=== PATIENT | male | born 1960 | race African-American/Black ===

== ENCOUNTER 2016-10-30 09:06 | Emergency (ER) | payer MEDICAID, OTHER ==
[~2016-10-30] VITALS: Ht 182.9 cm; Wt 110.0 kg
[2016-10-30] MEDS ORDERED: GEMF600T3 PO (09:10)
[2016-10-30] MEDS ORDERED: METF500T4 PO (09:10)
[2016-10-30] MEDS ORDERED: ASPI-1159 PO (09:10)
[2016-10-30] MEDS ORDERED: LISI2.5T47 PO (09:10)
[2016-10-30] MEDS ORDERED: LIDOCAINE HCL 1% 20ML VIAL (Pyxis) INJ MC ONE (13:00)
[2016-10-30] MEDS ORDERED: BACITRACIN ZINC OINT UDPKT TOP ONE (13:00)
[2016-10-30] MEDS ORDERED: TETANUS, DIPHTHERIA, PERTUSSIS VAC/PF 0.5ML (>7YR OLD) IM ONE (13:00)
[2016-10-30 15:00] VITALS: BP 162/93
== END 2016-10-30 15:28 | disposition home or self-care (01) ==
LOC: ER 09:16
DX: S01.112A Laceration without foreign body of left eyelid and periocular area, initial encounter (principal); S05.12XA Contusion of eyeball and orbital tissues, left eye, initial encounter; G91.9 Hydrocephalus, unspecified; I10 Essential (primary) hypertension; E11.9 Type 2 diabetes mellitus without complications; Z79.84 Long term (current) use of oral hypoglycemic drugs; Z79.82 Long term (current) use of aspirin; Y92.012 Bathroom of single-family (private) house as the place of occurrence of the external cause; W01.0XXA Fall on same level from slipping, tripping and stumbling without subsequent striking against object, initial encounter; Y93.E1 Activity, personal bathing and showering
CPT/HCPCS: 12011; 70450; 70486; 82962; 90471; 90715; 99284; J3490; X7700; Z7610

== ENCOUNTER 2024-11-15 12:00 | Inpatient (IN) | payer MEDICAID, OTHER ==
[~2024-11-15] VITALS: Ht 170.2 cm; Wt 77.6 kg
[~2024-11-15 12:00] MED LIST: AMLO5TAB88 PO; ASPI-1497 PO; CARV3.1242 PO; EPOE40002; FINA5TAB11 PO; GEMF600T90 PO; LEVE500T19 PO; METF-414 PO; PANT40TA51 PO; SACU1TAB PO; TAMS-54 PO
[2024-11-15 13:19] LABS: MEAN PLATELET VOLUME 6.4 fl (7.4-10.4); PLATELET 368 x1000/uL (130-400); RED BLOOD CELL COUNT 2.12 mill/uL (4.7-6.1); RED CELL DISTRIBUTION WIDTH 15.3 % (11.6-14.6); UREA NITROGEN BLOOD 20 mg/dL (9-23)
[2024-11-15 13:22] LABS: HEMATOCRIT. 18.9 % (42.0-52.0); HEMOGLOBIN. 6.1 g/dL (14.0-18.0)
[2024-11-15 13:33] LABS: CREATININE 1.3 mg/dL (0.6-1.3)
[2024-11-15] MEDS ORDERED: POTASSIUM CHLORIDE 20MEQ/PACKET GT SCH (14:15)
[2024-11-15 14:29] LABS: PHOSPHORUS 1.1 mg/dL (2.5-4.9)
[2024-11-15] MEDS ORDERED: MORPHINE SULFATE 2 MG/ML INJ (NOT FOR IM USE) IV PRN (14:30)
[2024-11-15] MEDS ORDERED: ONDANSETRON HCL 4MG/2ML INJ IV PRN (14:30)
[2024-11-15] MEDS ORDERED: NALOXONE HCL 0.4MG/ML VIAL IV PRN (14:30)
[2024-11-15] MEDS ORDERED: DEXTROSE 50% WATER 50ML SYRINGE IV PRN (14:30)
[2024-11-15] MEDS ORDERED: ACETAMINOPHEN 325MG TABLET PO PRN (14:30)
[2024-11-15] MEDS ORDERED: CLONIDINE 0.1MG TABLET PO PRN (14:30)
[2024-11-15] MEDS ORDERED: HYDROCODONE/ACETAMINOPHEN 5/325MG TABLET PO PRN (14:30)
[2024-11-15] MEDS ORDERED: MAGNESIUM/ALUMINUM HYDROXIDE/SIMETHICONE 30ML UDC PO PRN (14:30)
[2024-11-15 14:37] LABS: BAND% 4.0 % (1.0-6.0); LYMPHOCYTES % MANUAL 3.0 % (20.0-50.0); MONOCYTES % MANUAL 3.0 % (2.0-8.0); NEUTROPHILS % MANUAL 90.0 % (45.0-75.0); PLATELET ESTIMATE NORMAL
[2024-11-15 16:17] VITALS: BP 138/83; PULSE 111; RESP 20; TEMP 37.8; O2SAT 95
[2024-11-15] MEDS: BLOOD SUGAR DIAGNOSTIC STRIP TEST SCH (17:10)
[2024-11-15] MEDS: INSULIN LISPRO 100 UNITS/ML SUBCUT SCH (17:40)
[2024-11-15 19:10] VITALS: BP 138/83; PULSE 111; RESP 20; TEMP 35.028
[2024-11-15 20:00] VITALS: BP 166/93; PULSE 109; RESP 20; TEMP 36; O2SAT 94
[2024-11-15] MEDS: EPOETIN ALFA 4,000 UNITS/ML VIAL SUBCUT SCH (21:39)
[2024-11-15] MEDS: SACUBITRIL/VALSARTAN 24MG/26MG TABLET PO SCH (21:40)
[2024-11-15] MEDS: LEVETIRACETAM 500MG TABLET PO SCH (21:40)
[2024-11-15] MEDS: CARVEDILOL 3.125 MG TABLET PO SCH (21:54)
[2024-11-15] MEDS: POTASSIUM PHOSPHATE 30 MMOL in DEXT 5% WATER 490 ML IV ONE (23:02)
[2024-11-16] VITALS: BP 186/86; PULSE 101; RESP 19; TEMP 37.1; O2SAT 96
[2024-11-16 04:00] VITALS: BP 130/72; PULSE 101; RESP 20; TEMP 36.7; O2SAT 98
[2024-11-16 05:57] LABS: BASOPHILS % 0.5 % (0.0-2.0); EOSINOPHILS % 0.9 % (0.0-5.0); HEMATOCRIT. 21.2 % (42.0-52.0); HEMOGLOBIN. 7.1 g/dL (14.0-18.0); LYMPHOCYTES % 6.8 % (20.0-50.0); MEAN PLATELET VOLUME 6.6 fl (7.4-10.4); MONOCYTES % 7.7 % (2.0-8.0); NEUTROPHILS % 84.1 % (40.0-76.0); PLATELET 287 x1000/uL (130-400); RED BLOOD CELL COUNT 2.41 mill/uL (4.7-6.1); RED CELL DISTRIBUTION WIDTH 15.1 % (11.6-14.6)
[2024-11-16 06:44] LABS: UREA NITROGEN BLOOD 27 mg/dL (9-23)
[2024-11-16 06:46] LABS: CREATININE 1.8 mg/dL (0.6-1.3); PHOSPHORUS 3.3 mg/dL (2.5-4.9)
[2024-11-16 08:00] VITALS: BP 140/82; PULSE 100; RESP 18; TEMP 37.7; O2SAT 100
[2024-11-16] MEDS ORDERED: GEMFIBROZIL 600MG TABLET PO SCH (09:00)
[2024-11-16] MEDS ORDERED: TAMSULOSIN HCL 0.4MG SR CAPSULE PO SCH (09:00)
[2024-11-16] MEDS ORDERED: FINASTERIDE 5MG TABLET PO SCH (09:00)
[2024-11-16] MEDS: PANTOPRAZOLE SODIUM 40 MG/VIAL IV SCH (09:54)
[2024-11-16] MEDS: AMLODIPINE 10MG TABLET PO SCH (09:55)
[2024-11-16] MEDS: TAMSULOSIN HCL 0.4MG SR CAPSULE PO SCH (09:55)
[2024-11-16] MEDS: FINASTERIDE 5MG TABLET PO SCH (09:56)
[2024-11-16 12:00] VITALS: BP 152/72; PULSE 100; RESP 18; TEMP 38.6; O2SAT 100
[2024-11-16] MEDS: FINASTERIDE 5MG TABLET GT SCH (12:50)
[2024-11-16 16:00] VITALS: BP 137/72; PULSE 100; RESP 17; TEMP 37.6; O2SAT 96
[2024-11-16 20:00] VITALS: BP 161/74; PULSE 96; RESP 17; TEMP 37; O2SAT 99
[2024-11-17] VITALS: BP 151/84; PULSE 91; RESP 17; TEMP 36.6; O2SAT 99
[2024-11-17 04:00] VITALS: BP 159/74; PULSE 91; RESP 17; TEMP 36.7; O2SAT 99
[2024-11-17 07:34] LABS: HEMATOCRIT. 21.7 % (42.0-52.0); HEMOGLOBIN. 7.1 g/dL (14.0-18.0); MEAN PLATELET VOLUME 7.0 fl (7.4-10.4); PLATELET 258 x1000/uL (130-400); RED BLOOD CELL COUNT 2.45 mill/uL (4.7-6.1); RED CELL DISTRIBUTION WIDTH 15.5 % (11.6-14.6)
[2024-11-17 07:43] LABS: CREATININE 2.3 mg/dL (0.6-1.3); UREA NITROGEN BLOOD 33.0 mg/dL (9-23)
[2024-11-17 08:00] VITALS: BP 123/70; PULSE 97; RESP 20; TEMP 36.4; O2SAT 99
[2024-11-17 12:00] VITALS: BP 133/86; PULSE 60; RESP 20; TEMP 36.1; O2SAT 95
[2024-11-17] MEDS: POTASSIUM CHLORIDE 20MEQ TABLET SR PO SCH (13:26)
[2024-11-17 16:00] VITALS: BP 128/82; PULSE 107; RESP 20; TEMP 36.7; O2SAT 96
[2024-11-17 20:00] VITALS: BP 150/80; PULSE 108; RESP 18; TEMP 36.7; O2SAT 98
[2024-11-17 21:55] LABS: EOSINOPHILS % MANUAL 3.0 % (0.0-5.0); LYMPHOCYTES % MANUAL 9.0 % (20.0-50.0); MONOCYTES % MANUAL 6.0 % (2.0-8.0); NEUTROPHILS % MANUAL 82.0 % (45.0-75.0); PLATELET ESTIMATE NORMAL
[2024-11-18] VITALS (14 sets, daily range): BP systolic 110–145; BP diastolic 70–87; PULSE 18–114; RESP 16–20; TEMP 36.1–37.2; O2SAT 96–100
[2024-11-18 07:09] LABS: HEMATOCRIT. 21.8 % (42.0-52.0); HEMOGLOBIN. 7.1 g/dL (14.0-18.0); MEAN PLATELET VOLUME 7.3 fl (7.4-10.4); PLATELET 242 x1000/uL (130-400); RED BLOOD CELL COUNT 2.44 mill/uL (4.7-6.1); RED CELL DISTRIBUTION WIDTH 15.7 % (11.6-14.6)
[2024-11-18 07:19] LABS: CREATININE 2.8 mg/dL (0.6-1.3)
[2024-11-18 07:21] LABS: UREA NITROGEN BLOOD 44.0 mg/dL (9-23)
[2024-11-18] MEDS ORDERED: ACETAMINOPHEN 650MG/20.3ML UDC GT PRN (07:30)
[2024-11-18] MEDS: LEVETIRACETAM 500MG/5ML CUP GT SCH (09:06)
[2024-11-18] MEDS: FAMOTIDINE 20MG/2ML VIAL IV SCH (11:41)
[2024-11-18] MEDS ORDERED: MEROPENEM 1,000 MG in SODIUM CHLORIDE 0.9% 100 ML IV SCH (13:15)
[2024-11-18 13:42] LABS: BAND% 5.0 % (1.0-6.0); EOSINOPHILS % MANUAL 1.0 % (0.0-5.0); LYMPHOCYTES % MANUAL 5.0 % (20.0-50.0); MONOCYTES % MANUAL 5.0 % (2.0-8.0); NEUTROPHILS % MANUAL 84.0 % (45.0-75.0)
[2024-11-18 13:43] LABS: PLATELET ESTIMATE NORMAL
[2024-11-18] MEDS ORDERED: EPOETIN ALFA-EPBX 4,000 UNITS/ML VIAL SUBCUT SCH (21:00)
[2024-11-18] MEDS ORDERED: MEROPENEM 1G/100ML IV SCH (21:00)
== END 2024-11-18 19:41 | DRG 663 ==
LOC: ER 12:30 → 8WST 13:53 → EDBEDREQ 14:10 → EDBEDREQTM 14:10 → ENRESERV 14:31 → 8WST 17:07
PROVIDERS: ADMIT Internal Medicine; ATTEND Internal Medicine
PROC: 30233N1 Transfusion of Nonautologous Red Blood Cells into Peripheral Vein, Percutaneous Approach (ICD-10-PCS; principal; 2024-11-15)
PROC: 0JBR0ZZ Excision of Left Foot Subcutaneous Tissue and Fascia, Open Approach (ICD-10-PCS; 2024-11-18)
PROC: 0JBQ0ZZ Excision of Right Foot Subcutaneous Tissue and Fascia, Open Approach (ICD-10-PCS; 2024-11-18)
PROC: 5A1D70Z Performance of Urinary Filtration, Intermittent, Less than 6 Hours Per Day (ICD-10-PCS; 2024-11-18)
DX: D62 Acute posthemorrhagic anemia (principal); L89.524 Pressure ulcer of left ankle, stage 4; L89.514 Pressure ulcer of right ankle, stage 4; R53.2 Functional quadriplegia; R62.7 Adult failure to thrive; R13.10 Dysphagia, unspecified; I12.0 Hypertensive chronic kidney disease with stage 5 chronic kidney disease or end stage renal disease; E11.22 Type 2 diabetes mellitus with diabetic chronic kidney disease; N18.6 End stage renal disease; F03.90 Unspecified dementia, unspecified severity, without behavioral disturbance, psychotic disturbance, mood disturbance, and anxiety; E87.6 Hypokalemia; K92.2 Gastrointestinal hemorrhage, unspecified; N40.0 Benign prostatic hyperplasia without lower urinary tract symptoms; G40.909 Epilepsy, unspecified, not intractable, without status epilepticus; E78.00 Pure hypercholesterolemia, unspecified; Z86.73 Personal history of transient ischemic attack (TIA), and cerebral infarction without residual deficits; Z74.01 Bed confinement status; Z93.1 Gastrostomy status; Z98.2 Presence of cerebrospinal fluid drainage device; Z99.2 Dependence on renal dialysis; Z68.26 Body mass index [BMI] 26.0-26.9, adult
CPT/HCPCS: 36415; 80048; 82962; 83735; 84100; 85025; 86850; 86900; 86920; 90935; 93005; 93970; 97162; 99291; A4606; J0885; J1308; J1815; J2185; J2470; J3490; J7060; P9016